=== PATIENT | male | born 1940 | race Caucasian/White ===

== ENCOUNTER 2021-03-07 06:26 | Day surgery (SDC) | payer OTHER ==
[~2021-03-07] VITALS: Ht 190.5 cm; Wt 59.5 kg
[~2021-03-07 06:26] MED LIST: 0.9%NACL 1000ML 1,000 ML IV ONE; ASPI-1197 PO; CHOL-34 PO; CYAN500T9 PO; FINA5TAB41 PO; FOLI0.4T6 PO; LACT10SO46 PO; LUBI24CA2 PO; MEGESTROL 40 MG/ML PO; MIRT-22 PO; ROPI3TAB5 PO; SENN-295 PO
[2021-03-07 06:30] VITALS: BP 81/60
[2021-03-07] MEDS ORDERED: TAMS-1 PO (07:30)
[2021-03-07] MEDS ORDERED: LEVOFLOXACIN 500 MG/D5W 100 ML 100 ML ONE (08:08)
[2021-03-07] MEDS ORDERED: PROPOFOL 10 MG/ML 20ML VIAL IV ONE ×2 (08:13)
[2021-03-07 09:00] VITALS: BP 95/30
[2021-03-07 09:05] VITALS: BP 93/36
[2021-03-07 09:23] VITALS: BP 127/46
== END 2021-03-07 09:35 | disposition home or self-care (01) ==
LOC: ENDO 06:26 → DAH 06:26 → ENDO 09:35
PROVIDERS: ATTEND Internal Medicine
DX: R63.4 Abnormal weight loss (principal); Z20.822 Contact with and (suspected) exposure to COVID-19; K63.5 Polyp of colon; R19.4 Change in bowel habit; K86.2 Cyst of pancreas; K22.89 Other specified disease of esophagus; K31.89 Other diseases of stomach and duodenum; K64.8 Other hemorrhoids; I10 Essential (primary) hypertension; J43.9 Emphysema, unspecified; R79.89 Other specified abnormal findings of blood chemistry; I49.8 Other specified cardiac arrhythmias; Z86.010 Personal history of colon polyps; Z79.82 Long term (current) use of aspirin; Z79.899 Other long term (current) drug therapy; Z98.890 Other specified postprocedural states; Z68.1 Body mass index [BMI] 19.9 or less, adult
CPT/HCPCS: 43238; 43239; 45380; 45385; 82150; 82378; 87635; 88173; 88305 ×2; 88342; 93005; A4215 ×2; A4216; A4221; A4222; A4223; A4606; A4620; A4657; A4663; C9803; J1956; J2704 ×2; J7030 ×2; 36415